=== PATIENT | female | born 1970 | race Two or more races ===

== ENCOUNTER 2023-09-20 17:42 | Emergency (ER) | payer SELFPAY ==
[~2023-09-20] VITALS: Ht 167.6 cm; Wt 59.0 kg
[2023-09-20 18:59] VITALS: BP 134/70; PULSE 76; RESP 16; TEMP 98.8; O2SAT 98
[2023-09-20] MEDS: IBUPROFEN 600 MG TAB PO ONE (19:15)
[2023-09-20] MEDS ORDERED: IBUP-1455 PO (19:20)
== END 2023-09-20 19:47 | disposition home or self-care (01) ==
LOC: ER 17:42 → EDBD 17:42 → ER 19:47
DX: S50.11XA Contusion of right forearm, initial encounter (principal); S60.012A Contusion of left thumb without damage to nail, initial encounter; R07.89 Other chest pain; V43.92XA Unspecified car occupant injured in collision with other type car in traffic accident, initial encounter; Y93.89 Activity, other specified; Y92.89 Other specified places as the place of occurrence of the external cause; Y99.8 Other external cause status